=== PATIENT | female | born 1980 | race African-American/Black ===

== ENCOUNTER 2017-01-16 14:32 | Inpatient (IN) | payer OTHER ==
[2017-01-16 19:12] VITALS: BMI 19.7
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
[2017-01-16] MEDS ORDERED: MAG HYDROX/AL HYDROX/SIMETH 30 ML UNIT-DOSE CUP PO PRN (21:22)
[2017-01-16] MEDS ORDERED: MAGNESIUM HYDROX 2400MG/30ML ORAL SUSPENSION 30 ML CUP PO PRN (21:22)
[2017-01-16] MEDS ORDERED: chlordiazePOXIDE HCL 25 MG CAPSULE PO ONE (21:22)
[2017-01-16] MEDS ORDERED: hydrOXYzine PAMOATE 25 MG CAPSULE (FP) PO PRN (21:22)
[2017-01-16] MEDS ORDERED: P-EPHED 60MG/TRIPROLIDI 2.5MG TABLET PO PRN (21:22)
[2017-01-16] MEDS ORDERED: diphenhydrAMINE HCL 50 MG CAPSULE PO PRN (21:22)
[2017-01-16] MEDS ORDERED: LOPERAMIDE HCL 2 MG CAPSULE PO PRN (21:22)
[2017-01-16] MEDS ORDERED: guaiFENesin/D-METHORPHAN HB 10 ML UNIT-DOSE CUPS PO PRN (21:22)
[2017-01-16] MEDS ORDERED: IBUPROFEN 400 MG TABLET (FP) PO PRN (21:22)
[2017-01-16] MEDS ORDERED: MAGNESIUM CITRATE 300 ML BOTTLE PO PRN (21:22)
[2017-01-16] MEDS ORDERED: ACETAMINOPHEN 325 MG TABLET (FP) PO PRN (21:22)
[2017-01-16] MEDS ORDERED: chlordiazePOXIDE HCL 25 MG CAPSULE PO PRN (21:22)
[2017-01-16] MEDS ORDERED: MENTHOL/PHENOL 1 EACH UD MM PRN (21:22)
[2017-01-16] MEDS ORDERED: AMOX TR/POT CLAV 500MG/125MG TABLETS (FP) PO ONE (21:26)
[2017-01-16] MEDS: chlordiazePOXIDE HCL 25 MG CAPSULE PO SCH (23:11)
[2017-01-16] MEDS: NICOTINE 21 MG/24 HOURS TOPICAL PATCH TD SCH (23:13)
[2017-01-16] MEDS: THIAMINE HCL 100 MG TABLET (FP) PO SCH (23:14)
[2017-01-16] MEDS: BACITRACIN 30 GM TUBE TOPICAL OINTMENT TP SCH (23:44)
[2017-01-17] MEDS: chlordiazePOXIDE HCL 25 MG CAPSULE PO SCH ×4 (06:46→22:54)
[2017-01-17 10:20] LABS: MCH 31.7 pg (25.7-33.7); MCHC 33.2 g/dl (32.0-36.0); MEAN CELL VOLUME 95.4 fl (80-96); MEAN PLT VOLUME 7.7 fl (7.5-11.1); PLATELET COUNT 222 K/MM3 (134-434); RDW 15.4 % (11.6-15.6); WHITE BLOOD COUNT 5.3 K/mm3 (4.0-10.0)
--- NOTE | 2017-01-17 10:37 | PN ---
S CIWA - CIWA Score Nausea/Vomitin-No Nausea/No Vomiting Muscle Tremors: 4-Moderate,w/Arms Extend Anxiety: 4-Mod. Anxious/Guarded Agitation: 4-Moderately Restless Paroxysmal Sweats: 3 Orientation: 0-Oriented Tacttile Disturbances: 0-None Auditory Disturbances: 0-None Visual Disturbances: 0-None Headache: 2-Mild CIWA-Ar Total Score: 17 BHS Progress Note (SOAP) Subjective: agitation anxiety sweats irritable body aches Objective: 01/17/17 10:38 Vital Signs Temperature 98.1F 01/17/17 10:00 Pulse Rate 78 01/17/17 10:00 Respiratory Rate 16 01/17/17 10:00 Blood Pressure 142/91 01/17/17 10:00 O2 Sat by Pulse Oximetry (%) Laboratory Tests 01/17/17 07:00 WBC 5.3 RBC 4.03 Hgb 12.8 Hct 38.4 MCV 95.4 MCHC 33.2 RDW 15.4 Plt Count 222 MPV 7.7 labs pending awake/alert ambulating no acute distress Assessment: 01/17/17 10:39 withdrawal sx Plan: continue detox increase fluids labs pending continue ABX for finger injury
[2017-01-17] MEDS: PRENATAL VITAMINS W/ FOLIC ACID TABLET (FP) PO SCH (10:41)
[2017-01-17] MEDS: amLODIPine BESYLATE 10 MG TABLET (FP) PO SCH (10:41)
[2017-01-17] MEDS: BACITRACIN 30 GM TUBE TOPICAL OINTMENT TP SCH ×2 (10:41→22:53)
[2017-01-17] MEDS: AMOX TR/POT CLAV 500MG/125MG TABLETS (FP) PO SCH ×2 (10:41→17:37)
[2017-01-17] MEDS: ALBUTEROL SO4 6.7 GM HFA INHALER IH PRN (10:43)
[2017-01-17] MEDS: NICOTINE 21 MG/24 HOURS TOPICAL PATCH TD SCH (10:44)
[2017-01-17 10:57] LABS: HIV 1 & 2 AB NEGATIVE; HIV 1 AGp24 NEGATIVE
[2017-01-17 11:02] LABS: ALBUMIN 3.3 g/dl (3.4-5.0); ALK PHOS 67 U/L (45-117); ANION GAP 8 (8-16); BILIRUBIN,TOTAL 0.5 mg/dL (0.2-1.0); CALCIUM 8.5 mg/dL (8.5-10.1); CO2 25 mmol/L (21-32); CREATININE 0.8 mg/dL (0.55-1.02); GLUCOSE,RANDOM 79 mg/dL (74-106); SGOT/AST 30 U/L (15-37); SGPT/ALT 25 U/L (12-78); TOT PROT 6.4 g/dl (6.4-8.2)
--- NOTE | 2017-01-17 13:36 | CONSULT ---
[facility] Psychiatric Consult - Data Date of interview: 01/17/17 Admission source: [facility] Identifying data: Readmission to [facility] for this 36 y/o AA female seeking detox treatment for alcohol,cocaine,PCP and nicotine dependence.Patient is hostile,easily irritable and reluctant to provide personal information." Get to my files and you will find all my story.Why do you have to annoy me with your questions ? You are interfering with my rest.I already told you about my medications.Leave me alone." Previous records are reviewed for longitudinal information,including Dr Cruz's consult note of 12/25/16. Substance Abuse History: - Smoking Cessation. Smoking history: Current every day smoker. Have you smoked in the past 12 months: Yes. Aproximately how many cigarettes per day: 10. Hx Chewing Tobacco Use: No. Initiated information on smoking cessation: Yes. 'Breaking Loose' booklet given: 01/16/17. - Substance & Tx. History. Hx Alcohol Use: Yes. Hx Substance Use: Yes. Substance Use Type : Alcohol, Cocaine. Hx Substance Use Treatment: Yes ([facility] 04/08/14 TO 04/12/14) . - Substances Abused. Alcohol. Route: Oral. Frequency: Daily. Amount used: 1PINT OF HENESSEY/3 OF 40 OZS. Age of first use: 13. Date of Last Use: 01/15/17. Cocaine. Route: Smoking. Frequency: Daily. Amount used: 80$. Age of first use: 27. Date of Last Use: 01/15/17. PCP. Route: Smoking. Frequency: 1-3 times last 30 days. Amount used: 20$. Age of first use: 21. Date of Last Use: 01/11/17. Taken from [facility] report. Medical History: Taken from [facility] report : bronchial asthma,cardiomegaly, hypertension and a history of exploratory laparotomy (peritonitis).Noted remote history of surgery for recto-vaginal reconstruction during infancy. Psychiatric History: Not able to obtain a cohesive information about this patient's psychiatric history.Patient denies having mental illness although she endorses the diagnosis of Bipolar Disorder.Ms Kee indicates also that she is prescribed seroquel and celexa.No OPD care providers identified.No information about approximate date of last medication intake.Interview had to be conducted in the presence of nurse Ms Kitchen to prevent behavioral escalation.Patient denies history of suicide attempts. Physical/Sexual Abuse/Trauma History: No information.Not discussed in this hectic interview. Additional Comment: Urine Drug Screen Results: ABAD-Cocaine, TCA-Tricyclic Antidepresant.Noted. Mental Status Exam - Mental Status Exam Alert and Oriented to: Time, Place, Person Cognitive Function: Good Patient Appearance: Disheveled, Bizarre Mood: Angry, Hostile, Irritable Affect: Labile Patient Behavior: Uncooperative, Guarded, Impulsive (argumentative and verbally abusive.Invested in splitting behavior) Speech Pattern: Excessive (disorganized) Voice Loudness: Mildly Loud Thought Process: Tangential, Disorganized Thought Disorder: Bizarre Hallucinations: Denies Suicidal Ideation: Denies Homicidal Ideation: Denies Insight/Judgement: Impaired Sleep: Fair Appetite: Good (empty foodtray left at bedside) Muscle strength/Tone: Normal (pacing in corridors after termination of interview ) Gait/Station: Normal Psychiatric Findings - Problem List ([place] 1, 2,3) (1) Alcohol dependence with uncomplicated withdrawal Current Visit: Yes Status: Acute (2) Cocaine dependence Current Visit: Yes Status: Acute (3) Nicotine dependence Current Visit: Yes Status: Acute (4) PCP dependence Current Visit: Yes Status: Acute (5) Drug-induced mood disorder Current Visit: Yes Status: Acute (6) Bipolar disorder Current Visit: Yes Status: Chronic (7) H/O abdominal surgery Current Visit: Yes Status: Chronic (8) Weight loss Current Visit: Yes Status: Chronic (9) Asthma Current Visit: Yes Status: Chronic - Initial Treatment Plan Initial Treatment Plan: Psychoeducation.Detoxification.Medications : seroquel 100 mg po bid + celexa 10 mg po daily (medications initiated by Dr Cruz on visit and currently requested by the patient).Not receptive to discussion of side effects/benefits but eager to resume these medications.Observation.
[2017-01-17] MEDS: IBUPROFEN 600 MG TABLET (FP) PO PRN (14:06)
[2017-01-17] MEDS: NICOTINE POLACRILEX 4 MG GUM BUC PRN (14:52)
[2017-01-17 15:21] LABS: URINE APPEARANCE CLEAR; URINE BILIRUBIN NEGATIVE (NEGATIVE); URINE BLOOD NEGATIVE (NEGATIVE); URINE COLOR LTYELLOW; URINE GLUCOSE (UA) NEGATIVE (NEGATIVE); URINE KETONE NEGATIVE (NEGATIVE); URINE LEUK ESTERASE NEGATIVE (NEGATIVE); URINE NITRITE NEGATIVE (NEGATIVE); URINE PROTEIN NEGATIVE (NEGATIVE); URINE UROBILINOGEN NEGATIVE E.U./dl (0.2-1.0)
[2017-01-17] MEDS: THIAMINE HCL 100 MG TABLET (FP) PO SCH (22:54)
[2017-01-17] MEDS: QUEtiapine FUMARATE 100 MG TABLET (FP) PO SCH (22:54)
[2017-01-18] MEDS: chlordiazePOXIDE HCL 25 MG CAPSULE PO SCH ×3 (06:00→17:41)
[2017-01-18] MEDS: IBUPROFEN 600 MG TABLET (FP) PO PRN (06:02)
[2017-01-18] MEDS: AMOX TR/POT CLAV 500MG/125MG TABLETS (FP) PO SCH ×2 (08:10→17:41)
--- NOTE | 2017-01-18 10:46 | PN ---
S CIWA - CIWA Score Nausea/Vomitin-No Nausea/No Vomiting Muscle Tremors: 3 Anxiety: 3 Agitation: 4-Moderately Restless Paroxysmal Sweats: 3 Orientation: 0-Oriented Tacttile Disturbances: 0-None Auditory Disturbances: 0-None Visual Disturbances: 0-None Headache: 0-None Present CIWA-Ar Total Score: 13 BHS Progress Note (SOAP) Subjective: irritable agitation anxiety interrupted sleep Objective: 01/18/17 10:45 Vital Signs Temperature 98.1 F 01/18/17 10:35 Pulse Rate 89 01/18/17 10:35 Respiratory Rate 18 01/18/17 10:35 Blood Pressure 153/100 01/18/17 10:35 O2 Sat by Pulse Oximetry (%) Laboratory Tests 01/17/17 01/17/17 01/17/17 07:00 07:00 07:00 WBC 5.3 RBC 4.03 Hgb 12.8 Hct 38.4 MCV 95.4 MCHC 33.2 RDW 15.4 Plt Count 222 MPV 7.7 Sodium 143 Potassium 4.1 Chloride 110 H Carbon Dioxide 25 Anion Gap 8 BUN 16 Creatinine 0.8 Creat Clearance w eGFR > 60 Random Glucose 79 Calcium 8.5 Total Bilirubin 0.5 D AST 30 ALT 25 D Alkaline Phosphatase 67 Total Protein 6.4 Albumin 3.3 L Urine Color Urine Appearance Urine pH Ur Specific [place] Urine Protein Urine Glucose (UA) Urine Ketones Urine Blood Urine Nitrite Urine Bilirubin Urine Urobilinogen Ur Leukocyte Esterase RPR Titer Nonreactive Hepatitis C Antibody HIV 1&2 Antibody Screen HIV P24 Antigen 01/17/17 01/17/17 01/17/17 07:00 07:00 11:00 WBC RBC Hgb Hct MCV MCHC RDW Plt Count MPV Sodium Potassium Chloride Carbon Dioxide Anion Gap BUN Creatinine Creat Clearance w eGFR Random Glucose Calcium Total Bilirubin AST ALT Alkaline Phosphatase Total Protein Albumin Urine Color Ltyellow Urine Appearance Clear Urine pH 6.0 Ur Specific [place] 1.017 Urine Protein Negative Urine Glucose (UA) Negative Urine Ketones Negative Urine Blood Negative Urine Nitrite Negative Urine Bilirubin Negative Urine Urobilinogen Negative Ur Leukocyte Esterase Negative RPR Titer Hepatitis C Antibody 0.1 HIV 1&2 Antibody Screen Negative HIV P24 Antigen Negative awake/alert ambulating no acute distress Assessment: 01/18/17 10:46 withdrawal sx Plan: continue detox increase fluids
[2017-01-18] MEDS: PRENATAL VITAMINS W/ FOLIC ACID TABLET (FP) PO SCH (10:51)
[2017-01-18] MEDS: amLODIPine BESYLATE 10 MG TABLET (FP) PO SCH (10:52)
[2017-01-18] MEDS: CITALOPRAM HYDROBROMIDE 10 MG TABLET (FP) PO SCH (10:52)
[2017-01-18] MEDS: QUEtiapine FUMARATE 100 MG TABLET (FP) PO SCH ×2 (10:52→22:46)
[2017-01-18] MEDS: NICOTINE 21 MG/24 HOURS TOPICAL PATCH TD SCH (10:54)
[2017-01-18] MEDS: BACITRACIN 30 GM TUBE TOPICAL OINTMENT TP SCH ×2 (10:55→22:45)
--- NOTE | 2017-01-18 11:57 | EKG ---
Test Reason : Blood Pressure : / mmHG Vent. Rate : 076 BPM Atrial Rate : 076 BPM P-R Int : 128 ms QRS Dur : 078 ms QT Int : 350 ms P-R-T Axes : 010 069 071 degrees QTc Int : 393 ms NORMAL SINUS RHYTHM NONSPECIFIC T WAVE ABNORMALITY NO PREVIOUS ECGS AVAILABLE Confirmed by KARY LEWIS MD ([id number]) on 01/18/2017 11:56:59 AM Referred By: Confirmed By:KARY LEWIS MD
[2017-01-18] MEDS: ALBUTEROL SO4 6.7 GM HFA INHALER IH PRN (16:51)
[2017-01-18] MEDS: chlordiazePOXIDE 5 MG CAPSULE PO SCH (22:46)
[2017-01-18] MEDS: THIAMINE HCL 100 MG TABLET (FP) PO SCH (22:46)
[2017-01-19] MEDS: chlordiazePOXIDE 5 MG CAPSULE PO SCH ×3 (07:58→18:55)
[2017-01-19] MEDS: AMOX TR/POT CLAV 500MG/125MG TABLETS (FP) PO SCH ×2 (09:38→18:15)
[2017-01-19] MEDS: NICOTINE POLACRILEX 4 MG GUM BUC PRN ×3 (11:06→23:05)
[2017-01-19] MEDS: CITALOPRAM HYDROBROMIDE 10 MG TABLET (FP) PO SCH (11:07)
[2017-01-19] MEDS: QUEtiapine FUMARATE 100 MG TABLET (FP) PO SCH ×2 (11:07→23:00)
[2017-01-19] MEDS: amLODIPine BESYLATE 10 MG TABLET (FP) PO SCH (11:07)
[2017-01-19] MEDS: PRENATAL VITAMINS W/ FOLIC ACID TABLET (FP) PO SCH (11:07)
[2017-01-19] MEDS: BACITRACIN 30 GM TUBE TOPICAL OINTMENT TP SCH ×2 (11:08→23:01)
[2017-01-19] MEDS: NICOTINE 21 MG/24 HOURS TOPICAL PATCH TD SCH (11:09)
--- NOTE | 2017-01-19 14:06 | PN ---
S Progress Note (SOAP) Subjective: ALERT,IRRITABLE,INTERRUPTED SLEEP Objective: 01/19/17 14:05 Vital Signs Temperature 96.9 F L 01/19/17 10:03 Pulse Rate 80 01/19/17 10:03 Respiratory Rate 16 01/19/17 10:03 Blood Pressure 149/97 01/19/17 10:03 O2 Sat by Pulse Oximetry (%) Assessment: 01/19/17 14:05 WITHDRAWAL SYMPTOM Plan: CONTINUE DETOX,DISCHARGE IN AM
[2017-01-19 21:59] VITALS: TEMP 97.1
[2017-01-19] MEDS: THIAMINE HCL 100 MG TABLET (FP) PO SCH (23:00)
[2017-01-19] MEDS: chlordiazePOXIDE HCL 10 MG CAPSULE PO SCH (23:01)
[2017-01-20 06:22] VITALS: BP 104/69; PULSE 74
[2017-01-20] MEDS: chlordiazePOXIDE HCL 10 MG CAPSULE PO SCH (06:34)
[2017-01-20] MEDS: AMOX TR/POT CLAV 500MG/125MG TABLETS (FP) PO SCH (09:24)
[2017-01-20] MEDS: BACITRACIN 30 GM TUBE TOPICAL OINTMENT TP SCH (09:24)
[2017-01-20] MEDS: PRENATAL VITAMINS W/ FOLIC ACID TABLET (FP) PO SCH (09:25)
[2017-01-20] MEDS: QUEtiapine FUMARATE 100 MG TABLET (FP) PO SCH (09:25)
[2017-01-20] MEDS: CITALOPRAM HYDROBROMIDE 10 MG TABLET (FP) PO SCH (09:26)
[2017-01-20] MEDS: amLODIPine BESYLATE 10 MG TABLET (FP) PO SCH (09:26)
[2017-01-20] MEDS: NICOTINE 21 MG/24 HOURS TOPICAL PATCH TD SCH (09:27)
--- NOTE | 2017-01-20 09:47 | PN ---
S Progress Note (SOAP) Subjective: ALERT,NO COMPLAINT Objective: 01/20/17 09:46 Vital Signs Temperature 97.1 F L 01/20/17 06:21 Pulse Rate 74 01/20/17 06:21 Respiratory Rate 18 01/20/17 06:21 Blood Pressure 104/69 01/20/17 06:21 O2 Sat by Pulse Oximetry (%) Assessment: 01/20/17 09:46 DETOX COMPLETED,NO WITHDRAWAL SYMPTOM Plan: DISCHARGE TODAY,FOLLOW UP WITH AFTER CARE PROGRAM ARRANGEMENT
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
== END 2017-01-20 09:46 | disposition home or self-care (01) | DRG 774 ==
LOC: YASAS 14:32 → Y6N 19:02
PROVIDERS: ADMIT Internal Medicine Addiction Medicine; ATTEND Internal Medicine Addiction Medicine
PROC: HZ2ZZZZ Detoxification Services for Substance Abuse Treatment (ICD-10-PCS; principal; 2017-01-16)
DX: F10.230 Alcohol dependence with withdrawal, uncomplicated (principal); F14.20 Cocaine dependence, uncomplicated; F16.20 Hallucinogen dependence, uncomplicated; F17.210 Nicotine dependence, cigarettes, uncomplicated; F31.9 Bipolar disorder, unspecified; F19.24 Other psychoactive substance dependence with psychoactive substance-induced mood disorder; I10 Essential (primary) hypertension; J45.909 Unspecified asthma, uncomplicated; I51.7 Cardiomegaly; Z87.898 Personal history of other specified conditions; Z98.890 Other specified postprocedural states
CPT/HCPCS: 36415; 80053; 81003; 85027; 86593; 87389; 93005; 93010